=== PATIENT | male | born 1995 | race Caucasian/White ===

== ENCOUNTER 2017-06-17 14:49 | Inpatient (IN) | payer OTHER, SELFPAY ==
[2017-06-17 15:19] VITALS: BMI 24.3
[2017-06-17 15:24] VITALS: BP 143/72; PULSE 92; RESP 18; TEMP 36.8; O2SAT 98
[2017-06-17 15:42] VITALS: BP 143/72; PULSE 92; RESP 18; TEMP 36.8
--- NOTE | 2017-06-17 15:46 | PCM.HP.STD ---
Problem List (1) Drug use disorder Status: Chronic (2) Opiate withdrawal Status: Acute (3) Bronchial asthma Status: Chronic History of Present Illness Date of Admission: 06/17/17 Chief Complaint: Symptom complex of opiate withdrawal This is a 22 year-old male with history of drug use use disorder, he uses street heroin daily through snorting, he gets this from the street , he now wants to quit use of this illicit drug. He last used last night. He now presents with symptoms of acute opiate which include; anxiety, irritability, abdominal pain, back pain, restless legs, diaphoresis , nausea and insomnia. We are admitting him to the hospital for medical stabilization of withdrawal his symptoms. Past Medical History Past Medical History (Chronic Problems): Chronic Problems Drug use disorder (Chronic) Bronchial asthma (Chronic) Allergies amoxicillin Adverse Reaction (Verified 06/17/17 15:20) Hives Home Medications: Ambulatory Orders Medication Instructions Recorded Albuterol IH (ProAir) [Proair Hfa] 2 puff INHALATION PRN PRN 06/17/17 Fluticasone/Salmeterol [Advair 1 puff INHALATION BID 06/17/17 250-50 Diskus] Montelukast [Singulair] 10 mg PO DAILY 06/17/17 Smoking Status: Current every day smoker Review of Systems Constitutional: Reports: Anorexia VTE Information - Inpt Only VTE Present on Admission: No VTE Mechan Device Prophylaxis: None VTE Pharm Prophylaxis ordered?: No Patient Problems: Active and Suspected Problems Opiate withdrawal (Acute) - Physical Exam General: Alert, Oriented x3 HEENT: Atraumatic Oral: Moist Mucosa Neck: Supple, No JVD Lungs: Clear to auscultation Cardiovascular: Regular rate Abdomen: Bowel Sounds Present, Soft, Non Tender Extremities: No cyanosis, No edema Neurological: Cranial nerves II-XII grossly intact, Motor Exam 5/5 strength throughout Vital Signs Temp Pulse Resp BP Pulse Ox 98.3 F 92 18 143/72 H 98 06/17/17 15:42 06/17/17 15:42 06/17/17 15:42 06/17/17 15:42 06/17/17 15:24 Oxygen Delivery Method Room Air Weight: 70.398 kg Body Mass Index (BMI) 24.3 Assessment/Plan Active and Suspected Problems Opiate withdrawal (Acute) 1. Acute opiate withdrawal; he will be placed on the [facility] opiate withdrawal protocol for medical stabilization, will monitor him closely. 2. Drug use disorder; the patient is encouraged to follow-up as an outpatient for drug rehabilitation program after he is discharged. 3. Nicotine dependency; he will be placed on the nicotine transdermal patch. She is also recommended to quit smoking. 4. Bronchial asthma without acute exacerbation; we will continue his home medications without change. 5. Early ambulation for DVT prophylaxis.
[2017-06-17] MEDS: Buprenorphine HCl 2 MG TAB.SUBL SL (16:14)
[2017-06-17] MEDS: hydrOXYzine PAM 25 MG Capsule 50 MG PO (16:14)
[2017-06-17] MEDS: Ibuprofen 600 MG Tablet PO (17:44)
[2017-06-17] MEDS: Methocarbamol 750 MG Tablet PO (17:45)
[2017-06-17] MEDS: Dicyclomine 10 MG Capsule 20 MG PO (17:46)
[2017-06-17 18:08] LABS: Amylase 39 U/L (25-115); Lipase 77 U/L (73-393)
[2017-06-17 18:11] LABS: Alcohol, Blood (Medical)-Serum < 3.0 mg/dL
[2017-06-17 18:36] LABS: Amphetamine Urine VISTA NEGATIVE (<1000 ng/mL); Barbiturate Urine VISTA NEGATIVE (< 200 ng/mL); Benzodiazepine Urine VISTA NEGATIVE (< 200 ng/mL); Cocaine Urine VISTA NEGATIVE (< 300 ng/mL); Ecstacy Urine VISTA NEGATIVE (< 500 ng/mL); Methadone Urine VISTA NEGATIVE (< 300 ng/mL); PCP Urine VISTA NEGATIVE (< 25 ng/mL); THC Urine VISTA NEGATIVE (< 50 ng/mL); Vista UDS pH Range 6
[2017-06-17] MEDS: QUEtiapine 25 MG Tablet PO (19:11)
[2017-06-17] MEDS: cloNIDine HCl 0.1 MG Tablet PO ×2 (19:11→21:28)
[2017-06-17] MEDS: Budesonide Respules 0.5 MG/2 ML AMPUL.NEB. INHALATION (19:47)
[2017-06-17] MEDS: Albuterol 2.5 MG/3 ML VIAL.NEB. INHALATION (19:47)
[2017-06-17 19:48] VITALS: PULSE 105; RESP 16
[2017-06-17 20:20] VITALS: BP 129/67; PULSE 103; RESP 18; TEMP 36.4
[2017-06-17] MEDS: Pramipexole Di-HCl 0.25 MG Tablet PO (20:27)
--- NOTE | 2017-06-17 20:30 | NURSING ---
Nurse asked patient if he allowed the subutex to melt on his tongue, he stated he chewed it. Nurse stated the med works better if he allows it to melt on or under his tongue.
[2017-06-17 20:32] VITALS: PULSE 103
[2017-06-17] MEDS: traZODone 50 MG Tablet PO (20:42)
[2017-06-17] MEDS: Ondansetron ODT 4 MG Tablet PO (21:28)
[2017-06-17] MEDS: Acetaminophen 500 MG Tablet PO (21:28)
--- NOTE | 2017-06-17 22:00 | NURSING ---
Pt has been very restless tonight, has taken several showers. While he is in bed, he is moving his legs about, stated he cannot hold the legs still. Gave mirapex, ineffective. Placed text to Dr. Anderson. Saloni, charge nurse will give another dose of catapres, a dose of tylenol, and zofran. Dr. Chauhan called back and ordered librium 25mg q6hr PRN to be started.
[2017-06-17] MEDS: chlordiazePOXIDE 25 MG Capsule PO (22:10)
[2017-06-18] VITALS (7 sets, daily range): BP systolic 95–112; BP diastolic 44–60; PULSE 58–77; RESP 14–18; TEMP 36.4–37
[2017-06-18] MEDS: Buprenorphine HCl 2 MG TAB.SUBL SL (00:15)
[2017-06-18] MEDS: cloNIDine HCl 0.1 MG Tablet PO (01:55)
[2017-06-18] MEDS: Methocarbamol 750 MG Tablet PO (01:56)
[2017-06-18] MEDS: QUEtiapine 25 MG Tablet PO (01:58)
[2017-06-18] MEDS: hydrOXYzine 50 MG/ML Vial IM (03:03)
[2017-06-18] MEDS: chlordiazePOXIDE 25 MG Capsule PO ×3 (04:15→18:33)
--- NOTE | 2017-06-18 08:44 | PCM.PROGNOTE ---
<Ibeth Valente - Last Filed: 06/18/17 08:51> Patient Problems: Active and Suspected Problems Opiate withdrawal (Acute) Subjective: Patient seen and examined. States he did not sleep well overnight. Complains of anxiety. Denies nausea, vomiting, abdominal cramping. Denies other complaints. - Physical Exam General: Alert, Oriented x3, Cooperative, No apparent distress HEENT: Atraumatic, PERRLA, EOMI, Normocephalic Neck: Supple, No JVD, Negative Carotid Bruits Lungs: Clear to auscultation, Normal air movement Cardiovascular: Regular rate, Regular Rhythm, Normal S1, Normal S2, No murmurs Abdomen: Bowel Sounds Present, Soft, Non Tender, Non-Distended Extremities: No clubbing, No cyanosis, No edema, Capillary Refill Less than 3 Seconds Skin: No rashes, No breakdown Musculoskeletal: No Tenderness to Palpation of Joints or Extremities Neurological: Cranial nerves II-XII grossly intact, Neuro grossly intact Psych/Mental Status: Normal Affect, Appropriate Vital Signs Temp Pulse Resp BP Pulse Ox 97.6 F L 64 16 95/56 L 98 06/18/17 04:00 06/18/17 04:00 06/18/17 04:00 06/18/17 04:00 06/17/17 15:24 Oxygen Delivery Method Room Air Weight: 70.398 kg Body Mass Index (BMI) 24.3 Intake and Output for Last 24 Hours 06/16/17 06/17/17 06/18/17 23:59 23:59 23:59 Intake Total 240 / 240 1275 / 1275 Balance 240 / 240 1275 / 1275 Laboratory Tests Past 24 Hrs 06/17/17 06/17/17 06/17/17 16:52 16:52 17:45 Amylase 39 Lipase 77 Urine Opiates Screen POSITIVE H Urine Methadone Screen NEGATIVE Ur Barbiturates Screen NEGATIVE Ur Phencyclidine Scrn NEGATIVE Ur Amphetamines Screen NEGATIVE U Methamphetamin-MDMA NEGATIVE U Benzodiazepines Scrn NEGATIVE Urine Cocaine Screen NEGATIVE U Cannabinoids Screen NEGATIVE Ur Drug Screen Comment Ethyl Alcohol < 3.0 Medical Necessity - Tobacco Use Smoking Status: Current every day smoker Assessment/Plan Active and Suspected Problems Opiate withdrawal (Acute) 1. Acute opiate withdrawal-continue medical stabilization per [facility] protocol. Tox screen positive for opiates. Negative for other substances. 2. Tobacco dependence-encourage smoking cessation. Nicotine replacement patch. 3. Chronic asthma-no acute exacerbation. Albuterol aerosol as needed. DVT prophylaxis-not indicated due to low risk. This patient was seen by RYNE Grider under the supervision of Dr. Hobson. <Shannen Hobson E - Last Filed: 06/18/17 10:24> - Physical Exam Vital Signs Temp Pulse Resp BP Pulse Ox 98.3 F 77 18 102/48 L 98 06/18/17 09:21 06/18/17 09:21 06/18/17 09:21 06/18/17 09:21 06/17/17 15:24 Oxygen Delivery Method Room Air Weight: 155 lb 3.2 oz Body Mass Index (BMI) 24.3 Intake and Output for Last 24 Hours 06/16/17 06/17/17 06/18/17 23:59 23:59 23:59 Intake Total 240 / 240 1275 / 1275 Balance 240 / 240 1275 / 1275 Laboratory Tests Past 24 Hrs 06/17/17 06/17/17 06/17/17 16:52 16:52 17:45 Amylase 39 Lipase 77 Urine Opiates Screen POSITIVE H Urine Methadone Screen NEGATIVE Ur Barbiturates Screen NEGATIVE Ur Phencyclidine Scrn NEGATIVE Ur Amphetamines Screen NEGATIVE U Methamphetamin-MDMA NEGATIVE U Benzodiazepines Scrn NEGATIVE Urine Cocaine Screen NEGATIVE U Cannabinoids Screen NEGATIVE Ur Drug Screen Comment Ethyl Alcohol < 3.0 Assessment/Plan Hospitalist note: I am seeing this patient in conjunction with Ibeth Valente. I independently seen and examined the patient. Progress note above and laboratory data and I agree with the above treatment plan. Patient was admitted for acute opioid withdrawal for medical stabilization. Patient seen and examined. He complained that he was not able to sleep last night. Anxiety and restlessness is getting better. No more abdominal pain, nausea vomiting. His vital signs are stable. - Physical Exam General: Alert, Oriented x3, Cooperative, No apparent distress. HEENT: Atraumatic, PERRLA, EOMI. Neck: Supple, No JVD, Negative Carotid Bruits, Trachea Midline, Thyroid Normal. Lungs: Clear to auscultation, Normal air movement, No rhonchi, No wheeze, No rales. Cardiovascular: Regular rate, Regular Rhythm, Normal S1, Normal S2, PMI Normal. Abdomen: Bowel Sounds Present, Soft, Non Tender, Non-Distended, No Hepato-splenomegaly. Extremities: No clubbing, No cyanosis, No edema Skin: No rashes, No breakdown Neurological: Neuro grossly intact Vital Signs are stable. Assessment and plan: #1 acute opiate withdrawal: He is on [facility] protocol. Symptoms are improving. Vital signs are stable. #2 bronchial asthma: Stable, pulse ox is maintained on room air. He is on albuterol, Pulmicort and Singulair. This note was generated with [employer] dictation software. It may contain incorrect words, spelling, and punctuation that were not noted in checking the note before signing. Code Visit Inpatient E&M: 53609 Subs Hosp L2
[2017-06-18] MEDS: Montelukast 10 MG Tablet PO (09:13)
--- NOTE | 2017-06-18 10:29 | NURSING ---
Per report from JAE Mcdermott transfer professor and from report from patient- subutex is causing patient to have adverse effects that include increase in anxiety, restlessness, inability to sleep, tremors, nightmares, and yelling out. Librium ordered q6PRN- per transfer professor doctor- plan to continue with librium and continue to monitor patient.
[2017-06-18] MEDS: traZODone 50 MG Tablet PO (22:01)
[2017-06-19 07:42] VITALS: BP 108/64; PULSE 54; RESP 14; TEMP 36.4
[2017-06-19] MEDS: Montelukast 10 MG Tablet PO (09:42)
--- NOTE | 2017-06-19 11:18 | PCM.DC ---
- Discharge Diagnoses Current Active Problems: Current Active and Chronic Problems Drug use disorder (Chronic) Opiate withdrawal (Acute) Bronchial asthma (Chronic) You will use the following diet at home:: No restrictions Your food should be the consistency of: Regular Your liquids should be the consistency of: Regular/Thin Discharge Activity: Return to Normal Activity Allergies/Adverse Reactions: Allergies amoxicillin Adverse Reaction (Verified 06/17/17 15:20) Hives buprenorphine [From Subutex] Adverse Reaction (Verified 06/18/17 23:34) Other Medications to take at Discharge Albuterol IH (ProAir) [Proair Hfa] 2 puff INHALATION PRN PRN 06/17/17 Fluticasone/Salmeterol [Advair 250-50 Diskus] 1 puff INHALATION BID 06/17/17 Montelukast [Singulair] 10 mg PO DAILY 06/17/17 Primary Care Physician: Yoni Medrano,Out of [Primary Care Provider] - Please follow up with your Primary Care Physician in: 1-2 weeks Proposed Discharge Date: 06/19/18
--- NOTE | 2017-06-19 13:12 | NURSING ---
Patient had been unable to take subutex due to adverse reaction. Librium was given Q6h PRN- however, patient was not exhibiting any symptoms and was ready for discharge- per Laisha Marsh. This RN notified Jenelle Lagunas with [facility] that patient was ready medically for discharge and wanted to ensure that this would be ok- due to issue with patient's parole. Jenelle Lagunas states that his parole has nothing to do with it- and that if medically the patient could we d/c'ed- that would be fine. This RN notified Abundio Chau and Dr. Hobson of situation and that patient was not currently on a taper and was exhibiting no symptoms of withdrawal.
--- NOTE | 2017-06-19 14:15 | DS.PCM_ITS ---
<Abundio Jimenez - Last Filed: 06/19/17 14:10> Discharge Date and Diagnosis Date of Admission: 06/17/17 Date of Discharge: 06/19/17 - Primary Discharge Diagnosis Acute opiate withdrawal Nicotine abuse Asthma without acute exacerbation - Secondary Discharge Diagnosis Chronic Problems Drug use disorder (Chronic) Bronchial asthma (Chronic) Hospital Course and Treatment Operations: None Procedures: None Summary of Care Provided: Physical exam on day of discharge: General: Resting comfortably NAD Psych: A/Ox3 normal affect HEENT: PEARRLA AT NC Neck: Supple NT CV: RRR no m/t/r/g/h Resp: CTA Abd: [id number] Soft NT no guarding or rigidity Ext: DP2+= no edema Skin: W/D normal turgor Lymph/Heme: No active bleeding or adenopathy Neuro: CN2-12 intact Hospital course: The patient is a 22 year old M with a history of asthma and nicotine abuse who presented to the hospital with acute opiate withdrawal. He snorts heroin on a daily basis. His last use was the night prior to presentation. His presenting symptoms with what withdrawal included anxiety, irritability, abdominal pain, back pain, restless legs, diaphoresis, nausea, insomnia. He is admitted to the hospital and started on the medical stabilization protocol for acute opiate withdrawal. He was placed on Subutex however he was unable to tolerate this as it caused per the nursing staff some uncontrollable flailing of the arms. It was discontinued and he was placed on Librium as needed instead. On the third day he had gone without any Librium or Subutex and had no withdrawal symptoms. He felt that he was through his withdrawal and was stable. As his withdrawal score was 0 and he was not requiring medication he was felt that he was stable for discharge. He is discharged home in stable condition he will need to follow -up with his PCP in 1-2 weeks. This patient was seen by Abundio Jimenez PA-C under the supervision of Doctor Hobson. [] Discharge Diet: No Restrictions Discharge Activity: Return to Normal Activity Home Medications: Medications to take at Discharge Albuterol IH (ProAir) [Proair Hfa] 2 puff INHALATION PRN PRN 06/17/17 Fluticasone/Salmeterol [Advair 250-50 Diskus] 1 puff INHALATION BID 06/17/17 Montelukast [Singulair] 10 mg PO DAILY 06/17/17 Primary Care Physician: Yoni Doctor,Out of [Primary Care Provider] - Please follow up with your Primary Care Physician in: 1-2 weeks Minutes spent on discharge:: 35 Patient Condition:: Stable Medical Necessity - Tobacco Use Smoking Status: Current every day smoker Meaningful Use Info Meaningful Use Diagnoses (Choose all that apply): None applicable <Shannen Hobson E - Last Filed: 06/19/17 14:18> Discharge Date and Diagnosis - Secondary Discharge Diagnosis Chronic Problems Drug use disorder (Chronic) Bronchial asthma (Chronic) Hospital Course and Treatment Summary of Care Provided: Hospitalist note: Discharge summary above reviewed as well as physical examination and I agree with above discharge plan. Patient was admitted for acute opioid withdrawal for medical stabilization. He was started on [facility] protocol with tapering course of Subutex. Patient was not able to tolerate Subutex and according to nursing staff, he had uncontrollable shaking of his arms and he was restless. He was started on Librium as needed. On the day of discharge, patient had no more symptoms and he did not require any Librium or Subutex and he has no more symptoms that he came in with. His vital signs remained stable. Patient discharged home in a stable medical condition, continued on his home medication without any changes, plan to follow-up with [facility] program as outpatient, follow-up with PCP in 1-2 weeks. . Minutes spent on discharge:: 24 Code Visit Inpatient E&M: 69751 Disch Hosp
== END 2017-06-19 13:07 | disposition home or self-care (01) | DRG 897 ==
PROVIDERS: Admitting Provider Internal Medicine; Visit Provider Hospitalist
DX: F11.23 Opioid dependence with withdrawal (principal); J45.909 Unspecified asthma, uncomplicated; F17.200 Nicotine dependence, unspecified, uncomplicated
CPT/HCPCS: 80307; 80320; 82150; 83690; 94640; G0480